=== PATIENT | female | born 1950 | race Caucasian/White ===

== ENCOUNTER 2016-09-14 06:23 | Inpatient (IN) | payer OTHER ==
[~2016-09-14] VITALS: Ht 170.2 cm; Wt 104.0 kg
[2016-09-14 07:05] LABS: BILIRUBIN NEGATIVE (NEGATIVE); BLOOD 1+ Ery/uL (NEGATIVE); COLOR YELLOW (YELLOW); GLUCOSE (U) 2+ mg/dL (NORMAL); KETONE (U) NEGATIVE (NEGATIVE); LEUKOCYTES NEGATIVE Leu/uL (NEGATIVE); NITRITE NEGATIVE (NEGATIVE); PROTEIN 2+ mg/dL (NEGATIVE); SPECIFIC GRAVITY >=1.030 (1.001-1.030); UROBILINOGEN 0.2 mg/dL (0.2-1.0)
[2016-09-14 07:05] LABS: BASOPHIL 0.7 % (0-2); EOSINOPHIL 2.1 % (0-7); HCT 46.1 % (37.0-47.0); HGB 15.5 g/dl (12.5-16.0); LYMPHOCYTE 70.4 % (15-48); MCH 29.4 pg (25.0-31.0); MCHC 33.6 g/dL (32.0-36.0); MCV 87.5 fL (78.0-100.0); MPV 11.9 fL (6.0-9.5); NEUTROPHIL 21.8 % (41-80); PLT 251 K/uL (150-400); RBC 5.27 M/uL (4.20-5.40); WBC 24.1 K/uL (4.0-10.5)
[2016-09-14 07:06] LABS: CLARITY HAZY (CLEAR)
[2016-09-14 07:28] LABS: CKMB 1.44 ng/mL (0.97-4.94); TROPONIN T < 0.010 ng/mL
[2016-09-14 07:29] LABS: ALBUMIN 3.8 g/dL (3.4-4.8); BILIRUBIN - TOTAL 0.2 mg/dL (0.1-1.0); CREATININE 0.9 mg/dL (0.5-1.0); GLOBULIN (CALCULATION) 2.3 g/dL (2.2-4.2); POTASSIUM 3.8 mmol/L (3.5-5.1); TOTAL PROTEIN 6.1 g/dL (6.4-8.3)
[2016-09-14 07:34] LABS: LACTIC ACID 9.2 mmol/L (0.5-2.2)
[2016-09-14 09:12] LABS: INR 0.84 (0.9-1.2); PROTHROMBIN TIME 11.2 SECONDS (11.7-14.0); PTT 25.1 SECONDS (23.2-31.4)
[2016-09-14 11:28] LABS: BASOPHIL 0.1 % (0-2); EOSINOPHIL 0.2 % (0-7); HCT 40.3 % (37.0-47.0); HGB 13.7 g/dl (12.5-16.0); MCH 29.4 pg (25.0-31.0); MCV 86.5 fL (78.0-100.0); MONOCYTE 3.7 % (0-12); MPV 11.2 fL (6.0-9.5); PLT 151 K/uL (150-400); RBC 4.66 M/uL (4.20-5.40); WBC 10.6 K/uL (4.0-10.5)
[2016-09-14 11:42] LABS: CREATININE 0.8 mg/dL (0.5-1.0); MAGNESIUM 2.25 mg/dL (1.40-2.10); POTASSIUM 3.8 mmol/L (3.5-5.1)
[2016-09-15 04:08] LABS: BASOPHIL 0.1 % (0-2); EOSINOPHIL 0 % (0-7); HCT 34.9 % (37.0-47.0); HGB 11.8 g/dl (12.5-16.0); LYMPHOCYTE 19.5 % (15-48); MCH 29.2 pg (25.0-31.0); MCHC 33.8 g/dL (32.0-36.0); MCV 86.4 fL (78.0-100.0); MONOCYTE 2.8 % (0-12); MPV 11.1 fL (6.0-9.5); NEUTROPHIL 77.6 % (41-80); PLT 141 K/uL (150-400); RBC 4.04 M/uL (4.20-5.40); RDW 13.9 % (11.5-14.0); WBC 10.2 K/uL (4.0-10.5)
[2016-09-15 04:24] LABS: ALBUMIN 3.2 g/dL (3.4-4.8); BILIRUBIN - TOTAL 0.2 mg/dL (0.1-1.0); CREATININE 0.7 mg/dL (0.5-1.0); GLOBULIN (CALCULATION) 1.8 g/dL (2.2-4.2); POTASSIUM 3.6 mmol/L (3.5-5.1)
[2016-09-16 04:33] LABS: BASOPHIL 0 % (0-2); EOSINOPHIL 0 % (0-7); HGB 12.1 g/dl (12.5-16.0); LYMPHOCYTE 24.8 % (15-48); MCH 29.1 pg (25.0-31.0); MCHC 33.6 g/dL (32.0-36.0); MCV 86.5 fL (78.0-100.0); MPV 11.8 fL (6.0-9.5); NEUTROPHIL 69.2 % (41-80); PLT 131 K/uL (150-400); RBC 4.16 M/uL (4.20-5.40); RDW 14.3 % (11.5-14.0); WBC 12.7 K/uL (4.0-10.5)
[2016-09-16 04:49] LABS: CREATININE 0.6 mg/dL (0.5-1.0); MAGNESIUM 2.36 mg/dL (1.40-2.10); POTASSIUM 3.7 mmol/L (3.5-5.1)
[2016-09-17 04:37] LABS: HCT 34.8 % (37.0-47.0); HGB 11.5 g/dl (12.5-16.0); MCH 29.2 pg (25.0-31.0); MCV 88.3 fL (78.0-100.0); RBC 3.94 M/uL (4.20-5.40); RDW 14.6 % (11.5-14.0); WBC 9.3 K/uL (4.0-10.5)
[2016-09-17 04:59] LABS: CREATININE 0.8 mg/dL (0.5-1.0); POTASSIUM 3.7 mmol/L (3.5-5.1)
[2016-09-17] MEDS ORDERED: LOPRESSOR50 MG PO (15:55)
[2016-09-17] MEDS ORDERED: AZITHROMYCIN250 MG PO (15:56)
[2016-09-17] MEDS ORDERED: CEFDINIR300 MG PO (15:56)
[2016-09-17] MEDS ORDERED: PRINIVIL20 MG PO (15:56)
[2016-09-17] MEDS ORDERED: VENTOLIN HFA IN18 GM PO (15:57)
== END 2016-09-17 11:15 | disposition home or self-care (01) | DRG 871 ==
LOC: FER 06:23 → FICU 09:51
PROVIDERS: Emergency Medicine; Internal Medicine; ADMIT Internal Medicine
PROC: 0BH17EZ Insertion of Endotracheal Airway into Trachea, Via Natural or Artificial Opening (ICD-10-PCS; principal; 2016-09-14)
PROC: 5A1945Z Respiratory Ventilation, 24-96 Consecutive Hours (ICD-10-PCS; 2016-09-14)
DX: A41.9 Sepsis, unspecified organism (principal); J96.01 Acute respiratory failure with hypoxia; J96.02 Acute respiratory failure with hypercapnia; T68.XXXA Hypothermia, initial encounter; J18.9 Pneumonia, unspecified organism; F17.210 Nicotine dependence, cigarettes, uncomplicated; R65.20 Severe sepsis without septic shock
CPT/HCPCS: 31500; 36415; 36600; 71010; 71275; 80048; 80053; 80202; 81001; 82550; 82553; 82803; 83605; 83735; 83880; 84145; 84484; 85025; 85379; 85610; 85730; 87040; 87070; 87088; 87205; 87804; 87899; 92950; 93005; 94002; 94010; 94640; 94664; 94770; C9113; J0456; J1450; J1956; J2270; J2543; J2704; J2930; J3370; Q9967

== ENCOUNTER 2022-01-05 04:45 | Inpatient (IN) | payer MEDICARE, OTHER ==
[~2022-01-05] VITALS: Ht 172.7 cm; Wt 79.9 kg
[~2022-01-05 04:45] MED LIST: AZITHROMYCIN250 MG PO; CEFDINIR300 MG PO; COREG12.5 MG PO; COZAAR50 MG PO; IBUPROFEN800 MG PO; LOPRESSOR50 MG PO; PERCOCET 5-3251 EACH PO; PRINIVIL20 MG PO; VENTOLIN HFA IN18 GM PO; VOLTAREN **OUT75 MG PO
[2022-01-05 04:56] LABS: BASOPHIL 1.2 % (0-2); EOSINOPHIL 4.7 % (0-7); HCT 43.1 % (37.0-47.0); HGB 13.4 g/dl (12.5-16.0); LYMPHOCYTE 52.6 % (15-48); MCH 27.9 pg (25.0-31.0); MCHC 31.1 g/dL (32.0-36.0); MCV 89.8 fL (78.0-100.0); MONOCYTE 7.6 % (0-12); NEUTROPHIL 33.2 % (41-80); NRBC 0; PLT 252 K/uL (150-400); RDW 13.5 % (11.5-14.0); WBC 14.8 K/uL (4.0-10.5)
[2022-01-05 05:20] LABS: ALBUMIN 3.5 g/dL (3.4-5.0); BILIRUBIN - TOTAL 0.5 mg/dL (0.2-1.0); BUN/CREAT RATIO (CALC) 19.2 RATIO; CREATININE 0.99 mg/dL (0.51-0.95); GLOBULIN (CALCULATION) 3.5 g/dL; POTASSIUM 3.2 mmol/L (3.5-5.1)
[2022-01-05 05:31] LABS: LACTIC ACID 5.4 mmol/L (0.4-1.9)
[2022-01-05 05:41] LABS: CORONAVIRUS 2019 SARS-COV-2 NEGATIVE (NEGATIVE); INFLUENZA A NAA NEGATIVE (NEGATIVE)
[2022-01-05 06:02] LABS: BILIRUBIN NEGATIVE (NEGATIVE); BLOOD TRACE-INTACT Ery/uL (NEGATIVE); CLARITY CLEAR (CLEAR); COLOR YELLOW (YELLOW); GLUCOSE (U) NORMAL (NORMAL); LEUKOCYTES NEGATIVE Leu/uL (NEGATIVE); NITRITE NEGATIVE (NEGATIVE); PROTEIN NEGATIVE (NEGATIVE); SPECIFIC GRAVITY 1.025 (1.001-1.030); UROBILINOGEN 0.2 mg/dL (0.2-1.0); pH 5.5 (5.0-9.0)
[2022-01-05 06:09] LABS: AMPHETAMINES NEGATIVE (NEGATIVE); BARBITURATES NEGATIVE (NEGATIVE); ECSTASY (MDMA) NEGATIVE (NEGATIVE); MARIJUANA (THC) NEGATIVE (NEGATIVE); METHADONE NEGATIVE (NEGATIVE); OPIATES NEGATIVE (NEGATIVE); OXYCODONE NEGATIVE (NEGATIVE)
[2022-01-05 06:10] LABS: URINARY RBC RARE; URINARY WBC RARE
[2022-01-05] MEDS ORDERED: TENORMIN50 MG PO (12:30)
[2022-01-05] MEDS ORDERED: ASPIRIN EC81 MG PO (12:30)
[2022-01-05] MEDS ORDERED: LIPITOR40 MG PO (12:31)
[2022-01-05] MEDS ORDERED: AMIODARONE HCL200 MG PO (12:31)
[2022-01-05] MEDS ORDERED: BUSPAR5 MG PO (12:31)
[2022-01-05] MEDS ORDERED: ELIQUIS5 MG PO (12:32)
[2022-01-05] MEDS ORDERED: HYDROCODON-ACE1 EAC2 PO (12:32)
[2022-01-05] MEDS ORDERED: CYCLOBENZAPRINE10 MG PO (12:33)
[2022-01-05] MEDS ORDERED: TEMAZEPAM15 MG PO (12:34)
[2022-01-06 07:40] LABS: BUN/CREAT RATIO (CALC) 25.9 RATIO; CREATININE 0.81 mg/dL (0.51-0.95); MAGNESIUM 2.6 mg/dL (1.8-2.4); POTASSIUM 4.5 mmol/L (3.5-5.1)
--- NOTE | 2022-01-07 04:47 | NUR ---
PATIENTS HEART RATE HAS BEEN DROPPING DOWN TO 47-50, NOTIFIED SHAYNE CAZARES NP TO CONTACT PATIENTS DIGITAL MEDIA STRATEGIST
[2022-01-07 09:54] LABS: BASOPHIL 0.7 % (0-2); EOSINOPHIL 0.8 % (0-7); HCT 39.3 % (37.0-47.0); HGB 12.4 g/dl (12.5-16.0); LYMPHOCYTE 26.5 % (15-48); MCH 27.2 pg (25.0-31.0); MCHC 31.6 g/dL (32.0-36.0); MCV 86.2 fL (78.0-100.0); MONOCYTE 7.8 % (0-12); MPV 11.2 fL (6.0-9.5); NEUTROPHIL 63.5 % (41-80); NRBC 0; PLT 204 K/uL (150-400); RBC 4.56 M/uL (4.20-5.40); RDW 13.6 % (11.5-14.0); WBC 8.3 K/uL (4.0-10.5)
[2022-01-07 10:20] LABS: BUN/CREAT RATIO (CALC) 29.2 RATIO; CREATININE 0.96 mg/dL (0.51-0.95); MAGNESIUM 2.1 mg/dL (1.8-2.4); POTASSIUM 4.1 mmol/L (3.5-5.1)
--- NOTE | 2022-01-07 12:21 | NUR ---
01/07/ MsBritney Long lives with her grandson. She is independent and does not use any DME. She recently had a heart procedure and is current with [facility] . [facility] was notified of admission and discharge.
[2022-01-07] MEDS ORDERED: BUMEX1 MG PO (13:56)
[2022-01-07] MEDS ORDERED: K-TAB ER20 MEQ PO (13:56)
== END 2022-01-07 15:52 | disposition home or self-care (01) | DRG 291 ==
LOC: FER 04:45 → FMS 09:24
PROVIDERS: Emergency Medicine; ADMIT Internal Medicine
PROC: 5A09357 Assistance with Respiratory Ventilation, Less than 24 Consecutive Hours, Continuous Positive Airway Pressure (ICD-10-PCS; principal; 2022-01-05)
PROC: B24BZZZ Ultrasonography of Heart with Aorta (ICD-10-PCS; 2022-01-07)
DX: I11.0 Hypertensive heart disease with heart failure (principal); J18.9 Pneumonia, unspecified organism; C34.90 Malignant neoplasm of unspecified part of unspecified bronchus or lung; I97.190 Other postprocedural cardiac functional disturbances following cardiac surgery; J96.11 Chronic respiratory failure with hypoxia; J44.0 Chronic obstructive pulmonary disease with (acute) lower respiratory infection; I50.9 Heart failure, unspecified; F41.9 Anxiety disorder, unspecified; I44.7 Left bundle-branch block, unspecified; Z20.822 Contact with and (suspected) exposure to COVID-19; E78.5 Hyperlipidemia, unspecified; I48.0 Paroxysmal atrial fibrillation; I25.10 Atherosclerotic heart disease of native coronary artery without angina pectoris; Z95.1 Presence of aortocoronary bypass graft; Z87.891 Personal history of nicotine dependence; Z82.49 Family history of ischemic heart disease and other diseases of the circulatory system; Z79.82 Long term (current) use of aspirin; Z79.899 Other long term (current) drug therapy; Z88.1 Allergy status to other antibiotic agents; Z88.8 Allergy status to other drugs, medicaments and biological substances; Z80.1 Family history of malignant neoplasm of trachea, bronchus and lung
CPT/HCPCS: 36415; 36600; 71045; 71275; 80048; 80053; 80305; 81001; 82803; 83036; 83605; 83735; 83880; 84145; 84484; 85025; 85379; 87040; 94640; 94664; J0696; J2930; J3010; J3475; J3480; J7050; Q9967; U0002

== ENCOUNTER 2022-01-23 04:21 | Emergency (ER) | payer MEDICARE, OTHER ==
[~2022-01-23 04:21] MED LIST changes: +AMIODARONE HCL200 MG PO; +ASPIRIN EC81 MG PO; +BUMEX1 MG PO; +BUSPAR5 MG PO; +CYCLOBENZAPRINE10 MG PO; +ELIQUIS5 MG PO; +HYDROCODON-ACE1 EAC2 PO; +K-TAB ER20 MEQ PO; +LIPITOR40 MG PO; +TEMAZEPAM15 MG PO; +TENORMIN50 MG PO
[2022-01-23 04:55] LABS: HCT 38.2 % (37.0-47.0); HGB 12.2 g/dl (12.5-16.0); MCHC 31.9 g/dL (32.0-36.0); MCV 84.5 fL (78.0-100.0); MPV 11.4 fL (6.0-9.5); RBC 4.52 M/uL (4.20-5.40); RDW 13.4 % (11.5-14.0); WBC 4.9 K/uL (4.0-10.5)
[2022-01-23 05:56] LABS: BUN/CREAT RATIO (CALC) 21.8 RATIO; CREATININE 0.87 mg/dL (0.51-0.95); POTASSIUM 4.1 mmol/L (3.5-5.1)
== END 2022-01-23 06:40 | disposition home or self-care (01) ==
LOC: FER 04:21
PROVIDERS: Emergency Medicine
DX: I48.91 Unspecified atrial fibrillation (principal); I11.0 Hypertensive heart disease with heart failure; I50.9 Heart failure, unspecified; J44.9 Chronic obstructive pulmonary disease, unspecified; F17.200 Nicotine dependence, unspecified, uncomplicated; Z88.1 Allergy status to other antibiotic agents; Z88.8 Allergy status to other drugs, medicaments and biological substances
CPT/HCPCS: 36415; 71045; 80048; 83880; 84484; 93005